=== PATIENT | female | born 1965 | race African-American/Black ===

== ENCOUNTER 2017-01-15 17:39 | Emergency (ER) | payer BC ==
[~2017-01-15] VITALS: Ht 170.2 cm; Wt 100.0 kg
[~2017-01-15 17:39] MED LIST: OMEP20CA5 PO; PERC10TA27 PO; PERC5TAB12 PO; PROM25SU8 PO
[2017-01-15 17:42] VITALS: BP 144/90; PULSE 90; RESP 16; TEMP 99.2; O2SAT 99
[2017-01-15] MEDS ORDERED: SODIUM CHLOR 0.9% 1000 ML INJ 1,000 ML IV SCH (18:36)
[2017-01-15] MEDS ORDERED: SODIUM CHLORIDE 0.9% FLUSH 10 ML FLUSH IV FLUSH PRN (18:45)
[2017-01-15] MEDS ORDERED: AMLO2.5T PO (19:00)
[2017-01-15] MEDS ORDERED: LISI2.5T3 PO (19:00)
[2017-01-15] MEDS ORDERED: OMEP20TA93 PO (19:00)
[2017-01-15] MEDS ORDERED: DIATRIZOATE MEGLUM/DIATRIZOATE SOD 9 ML CUP ONE (19:12)
[2017-01-15 19:25] LABS: AUTOMATED NEUTROPHIL # 7.2 TH/MM3 (1.8-7.7); BASOPHIL # 0.1 TH/MM3 (0-0.2); BASOPHIL % 0.6 % (0.0-2.0); EOSINOPHIL # 0.2 TH/MM3 (0-0.4); EOSINOPHIL % 1.9 % (0.0-4.0); HEMATOCRIT 35.9 % (35.0-46.0); HEMO FLAGS DIFF FINAL; LYMPH % 20.1 % (9.0-44.0); LYMPHOCYTE # 2.1 TH/MM3 (1.0-4.8); MEAN CELL VOLUME 93.6 FL (80.0-100.0); MEAN CORPUSCULAR HEMOGLOBIN 31.5 PG (27.0-34.0); MEAN CORPUSCULAR HGB CONC 33.7 % (32.0-36.0); MONO % 9.6 % (0.0-8.0); NEUT % 67.8 % (16.0-70.0); PLATELET COUNT 189 TH/MM3 (150-450); RED BLOOD COUNT 3.84 MIL/MM3 (4.00-5.30); RED CELL DISTRIBUTION WIDTH 14.8 % (11.6-17.2); WHITE BLOOD COUNT 10.6 TH/MM3 (4.0-11.0)
--- NOTE | 2017-01-15 19:32 | PD ---
HPI . Abdominal pain and constipation Chief Complaint: GI Complaint Time Seen by Provider: 18:29 Travel History International Travel<30 days: No Contact w/Intl Traveler<30days: No Traveled to known affect area: No History of Present Illness HPI 51-year-old female patient presents emergency department for evaluation of abdominal pain and constipation since Monday. Patient reports that she took 2 doses of milk of Magnesia today and had watery stool but did not feel like she had fully defecated in her abdomen was still distended. Patient denies any nausea or vomiting. Patient's only major medical history is hypertension and she takes hydrochlorothiazide daily. Patient reports frequent urination with no dysuria. Patient reports muscle weakness in her legs. PFSH Past Medical History Diminished Hearing: No Gastrointestinal Disorders: Yes GERD: Yes Headaches: Yes Hypertension: Yes Reproductive: Yes (CHRONIC UTERINE FIBROIDS ) Immunizations Current: Yes Influenza Vaccination: No ?: Not Menopausal: Yes : 2 Para: 2 Tubal Ligation: Yes Past Surgical History Abdominal Surgery: Yes (umbilical hernia repair) Cholecystectomy: Yes (2011) Gynecologic Surgery: Yes (PARTIAL HYSTERECTOMY) Hysterectomy: Yes Thoracic Surgery: Yes (BREAST REDUCTION - 2002) Other Surgery: Yes (BREAST REDUCTION) Social History Alcohol Use: Yes (SOCIALLY) Tobacco Use: No Substance Use: No Allergies-Medications (Allergen,Severity, Reaction): Coded Allergies: No Known Allergies (Verified , 05/24/14) Reported Meds & Prescriptions Reported Meds & Active Scripts Active Percocet 5-325 mg (Oxycodone/Acetaminophen) Oxycodone 5/325 Acetaminophen Tab 1- 2 Tab PO Q4H PRN Promethazine Hcl (Promethazine HCl) 25 Mg Tab 25 Mg PO Q6H PRN FOR NAUSEA/VOMITING Prilosec 20 mg (Omeprazole) 20 Mg Capcr 20 Mg PO DAILY Reported Omeprazole 20 Mg Tab 20 Mg PO DAILY Amlodipine (Amlodipine Besylate) 2.5 Mg Tab 2.5 Mg PO DAILY Lisinopril 2.5 Mg Tab 2.5 Mg PO BID Percocet 10-325 mg (Oxycodone-Acetaminophen 10-325 mg) Oxycodone 10/325 Acetaminophen Tab 1 Tab PO Q6H Review of Systems Except as stated in HPI: all other systems reviewed are Neg Physical Exam Narrative GENERAL: Well-nourished, well-developed obese 51-year-old black female patient in no acute distress. Nontoxic appearing. SKIN: Focused skin assessment warm/dry. HEAD: Normocephalic. Atraumatic. EYES: No scleral icterus. No injection or drainage. NECK: Supple, trachea midline. No JVD or lymphadenopathy. CARDIOVASCULAR: Regular rate and rhythm without murmurs, gallops, or rubs. RESPIRATORY: Breath sounds equal bilaterally. No accessory muscle use. GASTROINTESTINAL: Abdomen firm, tender in the epigastric region and distended. MUSCULOSKELETAL: No cyanosis, or edema. BACK: Nontender without obvious deformity. No CVA tenderness. Data Data Last Documented VS Vital Signs Date Time Temp Pulse Resp B/P (MAP) Pulse Ox O2 Delivery O2 Flow Rate FiO2 01/15/17 17:42 99.2 90 16 144/90 (108) 99 Orders Orders Basic Metabolic Panel (Bmp) (01/15/17 18:36) Complete Blood Count With Diff (01/15/17 18:36) Lipase (01/15/17 18:36) Urinalysis - C+S If Indicated (01/15/17 18:36) Iv Access Insert/Monitor (01/15/17 18:36) Ecg Monitoring (01/15/17 18:36) Oximetry (01/15/17 18:36) Sodium Chlor 0.9% 1000 Ml Inj (Ns 1000 M (01/15/17 18:36) Sodium Chloride 0.9% Flush (Ns Flush) (01/15/17 18:45) Ct Abd/Pel W Iv Contrast(Rout) (01/15/17 18:44) Oral Contrast - Adult (01/15/17 18:47) Diatrizoate Liq ( Gastroview Liq) (01/15/17 19:12) Labs Laboratory Tests Test 01/15/17 19:10 [facility] Medical Decision Making Medical Screen Exam Complete: Yes Emergency Medical Condition: Yes Differential Diagnosis Differential diagnoses include but not limited to small bowel obstruction, large bowel obstruction, constipation Narrative Course 51-year-old female presents to emergency room for evaluation of abdominal pain and constipation. IV obtained and blood work sent. CBC, BMP, lipase and UA ordered and pending. Abdominal CT ordered and pending. 1 L bolus normal saline given. Rectal exam performed. There is no harden stool noted to be in the rectal vault. Hemoccult negative. DANIELLE Hua assumes care of this patient. Please see his documentation for further details and disposition. Clare Valdez Jan 15, 2017 19:32
[2017-01-15 19:33] LABS: BLOOD, URINE NEG (NEG); COMMENT (UR) CULT NOT INDICATED; CULTURE IF INDICATED CULT NOT INDICATED; GLUCOSE,URINE NEG (NEG); KETONE, URINE NEG (NEG); NITRITE,URINE NEG (NEG); SQUAMOUS EPITHELIAL CELL URINE 8 /hpf (0-5); URINE COLOR YELLOW (YELLW/STRAW)
[2017-01-15 20:01] LABS: BICARBONATE 31.9 MEQ/L (21.0-32.0); POTASSIUM 3.4 MEQ/L (3.5-5.1)
[2017-01-15] MEDS ORDERED: IOHEXOL 350 MG/ML 10 ML VIAL (for RAD DIAG) IVCONTRAST ONE (21:20)
--- NOTE | 2017-01-15 21:49 | RADRPT ---
EXAM DATE/TIME: 01/15/2017 21:01 [place] COMPARISON: No previous studies available for comparison. INDICATIONS : Abdominal pain X 3 days. IV CONTRAST: 96 cc Omnipaque 350 (iohexol) IV ORAL CONTRAST: Prescribed oral contrast ingested. RADIATION DOSE: 8.67 CTDIvol (mGy) MEDICAL HISTORY : Hypertension. Gastroesophageal reflux disease. SURGICAL HISTORY : Umbilical hernia repair. Hysterectomy.Cholecystectomy. ENCOUNTER: Initial ACUITY: 3 days PAIN SCALE: 6/10 LOCATION: abdomen TECHNIQUE: Volumetric scanning of the abdomen and pelvis was performed. Using automated exposure control and ad justment of the mA and/or kV according to patient size, radiation dose was kept as low as reasonably achievable to obtain optimal diagnostic quality images. DICOM format image data is available electro nically for review and comparison. FINDINGS: Lung bases are clear. Mild fatty liver. Spleen, adrenals, kidneys and pancreas unremarkable. Previous cholecystectomy. Within the pelvis there is a left-sided adnexal mass measuring up to 7.5 x 3.9 cm in diameter. By his tory is hysterectomy although a portion of the uterus appears to remain present. Small amount of free fluid in the pelvis. CONCLUSION: 1. 7.5 x 3.9 cm left adnexal mass, probably a complex cyst. This could be confirmed sonographically. Trace free fluid in the pelvis. 2. Fatty infiltration of the liver. Cholecystectomy. No bowel obstruction or free air. Michael Chew MD on January 15, 2017 at 21:43 Board Certified Radiologist. This report was verified electronically.
--- NOTE | 2017-01-15 21:52 | PD ---
Physical Exam Narrative Patient was signed out to me by previous provider pending CT and lab results. Please see their documentation for full H&P. Data Data Last Documented VS Vital Signs Date Time Temp Pulse Resp B/P (MAP) Pulse Ox O2 Delivery O2 Flow Rate FiO2 01/15/17 22:24 86 16 142/86 (104) Room Air 01/15/17 17:42 99.2 99 Orders Orders Basic Metabolic Panel (Bmp) (01/15/17 18:36) Complete Blood Count With Diff (01/15/17 18:36) Lipase (01/15/17 18:36) Urinalysis - C+S If Indicated (01/15/17 18:36) Iv Access Insert/Monitor (01/15/17 18:36) Ecg Monitoring (01/15/17 18:36) Oximetry (01/15/17 18:36) Sodium Chlor 0.9% 1000 Ml Inj (Ns 1000 M (01/15/17 18:36) Sodium Chloride 0.9% Flush (Ns Flush) (01/15/17 18:45) Ct Abd/Pel W Iv Contrast(Rout) (01/15/17 18:44) Oral Contrast - Adult (01/15/17 18:47) Diatrizoate Liq ( Gastroview Liq) (01/15/17 19:12) Iohexol 350 Inj (Omnipaque 350 Inj) (01/15/17 21:20) Ed Discharge Order (01/15/17 22:07) Labs Laboratory Tests Test 01/15/17 19:10 White Blood Count 10.6 TH/MM3 Red Blood Count 3.84 MIL/MM3 Hemoglobin 12.1 GM/DL Hematocrit 35.9 % Mean Corpuscular Volume 93.6 FL Mean Corpuscular Hemoglobin 31.5 PG Mean Corpuscular Hemoglobin Concent 33.7 % Red Cell Distribution Width 14.8 % Platelet Count 189 TH/MM3 Mean Platelet Volume 9.8 FL Neutrophils (%) (Auto) 67.8 % Lymphocytes (%) (Auto) 20.1 % Monocytes (%) (Auto) 9.6 % Eosinophils (%) (Auto) 1.9 % Basophils (%) (Auto) 0.6 % Neutrophils # (Auto) 7.2 TH/MM3 Lymphocytes # (Auto) 2.1 TH/MM3 Monocytes # (Auto) 1.0 TH/MM3 Eosinophils # (Auto) 0.2 TH/MM3 Basophils # (Auto) 0.1 TH/MM3 CBC Comment DIFF FINAL Differential Comment Urine Color YELLOW Urine Turbidity HAZY Urine pH 8.0 Urine Specific [place] 1.020 Urine Protein NEG mg/dL Urine Glucose (UA) NEG mg/dL Urine Ketones NEG mg/dL Urine Occult Blood NEG Urine Nitrite NEG Urine Bilirubin NEG Urine Urobilinogen LESS THAN 2.0 MG/DL Urine Leukocyte Esterase NEG Urine RBC 1 /hpf Urine WBC 1 /hpf Urine Squamous Epithelial Cells 8 /hpf Urine Amorphous Sediment RARE Microscopic Urinalysis Comment CULT NOT INDICATED Blood Urea Nitrogen 14 MG/DL Creatinine 0.80 MG/DL Random Glucose 86 MG/DL Calcium Level 8.2 MG/DL Sodium Level 136 MEQ/L Potassium Level 3.4 MEQ/L Chloride Level 101 MEQ/L Carbon Dioxide Level 31.9 MEQ/L Anion Gap 3 MEQ/L Estimat Glomerular Filtration Rate 92 ML/MIN Lipase 142 U/L MDM Supervised Visit with CHACHA: No Interpretation(s) CT abdomen and pelvis read by the radiologist shows: 1. 7.5 x 3.9 cm left adnexal mass, probably a complex cyst. This could be confirmed sonographically. Trace free fluid in the pelvis. 2. Fatty infiltration of the liver. Cholecystectomy. No bowel obstruction or free air. Narrative Course Patient in no obvious distress upon re-evaluation. All pertinent laboratory/ Radiology result(s) discussed with patient. Any questions/concerns in reference to patient diagnosis/condition discussed and clarified prior to patient's discharge. Reinforced sheer importance of close follow up with patient 's primary physician or primary care clinic. Instructed patient to return to ED immediately, if symptoms return/worsen. Patient showed understanding of above instructions. Further instructions and recommendations were detailed in discharge paperwork. Patient ambulated without difficulty out of ED at discharge. Diagnosis Primary Impression: Abdominal pain Qualified Codes: R10.9 - Unspecified abdominal pain Additional Impressions: Ovarian mass, left Fatty liver Referrals: Braeden Coleman MD [facility] [employer] Patient Instructions: Abdominal Pain (ED), General Instructions Additional Instruction: Follow-up with your primary care physician and cvir tech regarding incidental findings noted on CT today. Take all medication as prescribed. Return to the emergency department if symptoms get worse. Med/Other Pt SpecificInfo: Prescription(s) given Scripts Tramadol (Tramadol) 50 Mg Tab 50 MG PO Q6H Y for PAIN GREATER THAN 7, #9 TAB 0 Refills Prov: Paolo Paul MD 01/15/17 Disposition: 01 DISCHARGE HOME Condition: Stable Héctor Aguiar Jan 15, 2017 21:52
--- NOTE | 2017-01-15 22:02 | PD ---
Data Data Last Documented VS Vital Signs Date Time Temp Pulse Resp B/P (MAP) Pulse Ox O2 Delivery O2 Flow Rate FiO2 01/15/17 17:42 99.2 90 16 144/90 (108) 99 Orders Orders Basic Metabolic Panel (Bmp) (01/15/17 18:36) Complete Blood Count With Diff (01/15/17 18:36) Lipase (01/15/17 18:36) Urinalysis - C+S If Indicated (01/15/17 18:36) Iv Access Insert/Monitor (01/15/17 18:36) Ecg Monitoring (01/15/17 18:36) Oximetry (01/15/17 18:36) Sodium Chlor 0.9% 1000 Ml Inj (Ns 1000 M (01/15/17 18:36) Sodium Chloride 0.9% Flush (Ns Flush) (01/15/17 18:45) Ct Abd/Pel W Iv Contrast(Rout) (01/15/17 18:44) Oral Contrast - Adult (01/15/17 18:47) Diatrizoate Liq ( Gastroview Liq) (01/15/17 19:12) Iohexol 350 Inj (Omnipaque 350 Inj) (01/15/17 21:20) Labs Laboratory Tests Test 01/15/17 19:10 White Blood Count 10.6 TH/MM3 Red Blood Count 3.84 MIL/MM3 Hemoglobin 12.1 GM/DL Hematocrit 35.9 % Mean Corpuscular Volume 93.6 FL Mean Corpuscular Hemoglobin 31.5 PG Mean Corpuscular Hemoglobin Concent 33.7 % Red Cell Distribution Width 14.8 % Platelet Count 189 TH/MM3 Mean Platelet Volume 9.8 FL Neutrophils (%) (Auto) 67.8 % Lymphocytes (%) (Auto) 20.1 % Monocytes (%) (Auto) 9.6 % Eosinophils (%) (Auto) 1.9 % Basophils (%) (Auto) 0.6 % Neutrophils # (Auto) 7.2 TH/MM3 Lymphocytes # (Auto) 2.1 TH/MM3 Monocytes # (Auto) 1.0 TH/MM3 Eosinophils # (Auto) 0.2 TH/MM3 Basophils # (Auto) 0.1 TH/MM3 CBC Comment DIFF FINAL Differential Comment Urine Color YELLOW Urine Turbidity HAZY Urine pH 8.0 Urine Specific [place] 1.020 Urine Protein NEG mg/dL Urine Glucose (UA) NEG mg/dL Urine Ketones NEG mg/dL Urine Occult Blood NEG Urine Nitrite NEG Urine Bilirubin NEG Urine Urobilinogen LESS THAN 2.0 MG/DL Urine Leukocyte Esterase NEG Urine RBC 1 /hpf Urine WBC 1 /hpf Urine Squamous Epithelial Cells 8 /hpf Urine Amorphous Sediment RARE Microscopic Urinalysis Comment CULT NOT INDICATED Blood Urea Nitrogen 14 MG/DL Creatinine 0.80 MG/DL Random Glucose 86 MG/DL Calcium Level 8.2 MG/DL Sodium Level 136 MEQ/L Potassium Level 3.4 MEQ/L Chloride Level 101 MEQ/L Carbon Dioxide Level 31.9 MEQ/L Anion Gap 3 MEQ/L Estimat Glomerular Filtration Rate 92 ML/MIN Lipase 142 U/L MDM Medical Record Reviewed: Yes Supervised Visit with CHACHA: Yes Narrative Course I, Dr. Paul, have reviewed the advance practice practitioner's documentation and am in agreement, met with the patient face to face, made the diagnosis, and the medical decision making was done by me. CBC & BMP Diagram 01/15/17 19:10 Calcium Level 8.2 L UA: No UTI CT shows L complex ov cyst Necessity of follow up with concern for neoplasia discussed pt verbalized understanding of plan please refer to CHACHA notes Paolo Paul MD Jan 15, 2017 22:01
[2017-01-15] MEDS ORDERED: TRAM50TA PO (22:04)
[2017-01-15 22:24] VITALS: BP 142/86; PULSE 86; RESP 16
== END 2017-01-15 22:25 | disposition home or self-care (01) ==
LOC: NEPD 17:39
DX: R10.9 Unspecified abdominal pain (principal); N83.9 Noninflammatory disorder of ovary, fallopian tube and broad ligament, unspecified; K76.0 Fatty (change of) liver, not elsewhere classified; K59.00 Constipation, unspecified; I10 Essential (primary) hypertension
CPT/HCPCS: 74177; 80048; 81001; 83690; 85025; 99285; J7030; Q9963; Q9967

== ENCOUNTER 2017-07-04 10:48 | Emergency (ER) | payer BC ==
[~2017-07-04 10:48] MED LIST changes: +AMLO2.5T PO; +LISI2.5T3 PO; +OMEP20TA93 PO; +TRAM50TA PO
[2017-07-04 11:08] VITALS: BP 151/105; PULSE 74; RESP 16; TEMP 98.7; O2SAT 98
[2017-07-04] MEDS ORDERED: HYDR12.56 PO ×2 (11:49→11:52)
[2017-07-04] MEDS ORDERED: LISI-515 PO ×2 (11:49→11:52)
[2017-07-04] MEDS ORDERED: AMLO2.5T PO (11:52)
[2017-07-04] MEDS ORDERED: NABU1TAB37 PO (11:52)
--- NOTE | 2017-07-04 11:53 | PD ---
HPI . Headache Chief Complaint: Headache Time Seen by Provider: 11:41 Travel History International Travel<30 days: No Contact w/Intl Traveler<30days: No Traveled to known affect area: No History of Present Illness HPI Patient presents with chief complaint of headache. Onset was 3 days ago. She also reports bilateral ear pain. Her pain has been unrelieved by ibuprofen and Aleve. She denies any other associated symptoms such as blurred vision, nausea , fever. Symptoms are moderate. No modifying factors. PFSH Past Medical History Diminished Hearing: No Gastrointestinal Disorders: Yes GERD: Yes Headaches: Yes Hypertension: Yes Reproductive: Yes (CHRONIC UTERINE FIBROIDS ) Immunizations Current: Yes ?: Not Menopausal: Yes : 2 Para: 2 Tubal Ligation: Yes Past Surgical History Abdominal Surgery: Yes (umbilical hernia repair) Cholecystectomy: Yes (2011) Gynecologic Surgery: Yes (PARTIAL HYSTERECTOMY) Hysterectomy: Yes (PARTIAL) Thoracic Surgery: Yes (BREAST REDUCTION - 2002) Other Surgery: Yes (BREAST REDUCTION) Social History Alcohol Use: Yes (SOCIALLY) Tobacco Use: No Substance Use: No Allergies-Medications (Allergen,Severity, Reaction): Coded Allergies: No Known Allergies (Verified Allergy, Unknown, 01/15/17) Reported Meds & Prescriptions Reported Meds & Active Scripts Active Tramadol (Tramadol HCl) 50 Mg Tab 50 Mg PO Q6H PRN Percocet 5-325 mg (Oxycodone/Acetaminophen) Oxycodone 5/325 Acetaminophen Tab 1- 2 Tab PO Q4H PRN Promethazine Hcl (Promethazine HCl) 25 Mg Tab 25 Mg PO Q6H PRN FOR NAUSEA/VOMITING Prilosec 20 mg (Omeprazole) 20 Mg Capcr 20 Mg PO DAILY Reported Omeprazole 20 Mg Tab 20 Mg PO DAILY Amlodipine (Amlodipine Besylate) 2.5 Mg Tab 2.5 Mg PO DAILY Lisinopril 2.5 Mg Tab 2.5 Mg PO BID Percocet 10-325 mg (Oxycodone-Acetaminophen 10-325 mg) Oxycodone 10/325 Acetaminophen Tab 1 Tab PO Q6H Review of Systems Except as stated in HPI: all other systems reviewed are Neg Physical Exam Narrative GENERAL: Awake and alert and in no acute distress. SKIN: Warm and dry. HEAD: Normocephalic/atraumatic. Positive scalp tenderness. EYES: Pupils are equal. Extraocular movements are intact. ENT: Positive bilateral TMJ tenderness. TMs are shiny [place] with good light reflexes. NECK: Normal range of motion. CARDIOVASCULAR: Regular rate and rhythm. RESPIRATORY: Nonlabored respirations. MUSCULOSKELETAL: Atraumatic. NEUROLOGICAL: Nonfocal. PSYCHIATRIC: Appropriate mood and affect. Data Data Last Documented VS Vital Signs Date Time Temp Pulse Resp B/P (MAP) Pulse Ox O2 Delivery O2 Flow Rate FiO2 07/04/17 11:08 98.7 74 16 151/105 (120) 98 MDM Medical Decision Making Medical Screen Exam Complete: Yes Emergency Medical Condition: Yes Differential Diagnosis Differential diagnosis of headache includes but is not limited to migraine, muscle contraction headache, brain tumor, brain bleed Narrative Course Patient presents with a chief complaint of headache. She is also complaining with bilateral ear pain. 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 I suspect that her headache is secondary to TMJ. The triage nurse got the history that the patient has been noncompliant with her blood pressure medications. She states that she is almost out of her medications but is not completely out. She states that she has been noncompliant because she just has other things on her mind. Diagnosis Primary Impression: Headache Qualified Codes: R51 - Headache Additional Impressions: Hypertension Qualified Codes: I10 - Essential (primary) hypertension TMJ arthralgia Qualified Codes: M26.623 - Arthralgia of bilateral temporomandibular joint Med/Other Pt SpecificInfo: Prescription(s) given Scripts Nabumetone (Nabumetone) 500 Mg Tab 500 MG PO BID for Pain-Inflammation, #60 TAB 0 Refills Prov: Erin Ellis MD 07/04/17 Hydrochlorothiazide (Hydrochlorothiazide) 12.5 Mg Tab 12.5 MG PO DAILY, #30 TAB 0 Refills Prov: Erin Ellis MD 07/04/17 Lisinopril (Lisinopril) 20 Mg Tab 20 MG PO DAILY, #30 TAB 0 Refills Prov: Erin Ellis MD 07/04/17 Amlodipine (Amlodipine) 2.5 Mg Tab 2.5 MG PO DAILY for Blood Pressure Management, #30 TAB 0 Refills Prov: Erin Ellis MD 07/04/17 Disposition: 01 DISCHARGE HOME Condition: Stable Erin Ellis MD July 04, 2017 11:53
== END 2017-07-04 12:12 | disposition home or self-care (01) ==
LOC: PHEFT 10:48
DX: R51 Headache (principal); I10 Essential (primary) hypertension; K21.9 Gastro-esophageal reflux disease without esophagitis; M26.603 Bilateral temporomandibular joint disorder, unspecified
CPT/HCPCS: 99281